=== PATIENT | male | born 1940 | race African-American/Black ===

== ENCOUNTER 2020-06-07 14:07 | Inpatient (IN) ==
[2020-06-07 15:43] LABS: Basophils % 0.3 % (0.0-0.8); Eosinophils # 0.1 10*3/uL (0.0-0.87); Eosinophils % 0.7 % (0.00-10.9); Hematocrit 33.9 VOL% (42.0-52.0); Immature Granulocytes % 0.4 %; Immature Granulocytes Absolute 0.05 #; Lymphocytes % 16.9 % (21.2-54.2); Mean Corpuscular HGB Conc 32.4 GM/DL (32-36); Mean Corpuscular Volume 92.1 FL (87-102); Mean Platelet Volume 10.2 FL (9.6-12.0); Monocytes % 10.1 % (1.7-12.7); Neutrophils % 71.6 % (38.7-73.9); Platelet Count 353 T/CUMM (130-400); Red Blood Count 3.68 MC/CUMM (3.8-5.5); Red Cell Distribution Width 12.8 % (9.3-17.3); White Blood Count 11.7 T/CUMM (4-12)
[2020-06-07 16:06] LABS: Albumin 2.9 G/DL (3.4-5.0); Bilirubin,Total 0.7 MG/DL (0.2-1.0); Calcium 8.8 MG/DL (8.5-10.1); Osmolality,Calculated 271.8 MOS/KG (273-304); Total Protein 8.1 G/DL (6.4-8.3)
[2020-06-07 16:08] LABS: Potassium 2.3 MMOL/L (3.5-5.1)
[2020-06-07] MEDS ORDERED: cefTRIAXone 1,000 MG in SODIUM CHLORIDE 0.9% 100 ML IV STA (16:24)
[2020-06-07] MEDS: POTASSIUM CHLORIDE RIDER 10 MEQ in PREMIX 1 EACH IV ONE ×2 (16:32→20:07)
[2020-06-07] MEDS ORDERED: DEXTROSE 50% 25 GM/50 ML VIAL IV PRN (16:50)
[2020-06-07] MEDS ORDERED: ONDANSETRON 4 MG/2 ML VIAL IV PRN (16:50)
[2020-06-07] MEDS ORDERED: GLUCAGON 1 MG VIAL IM PRN (16:50)
[2020-06-07] MEDS ORDERED: POTASSIUM CHLORIDE 20 MEQ TABLET PO ONE (17:47)
[2020-06-07] MEDS ORDERED: BENZONATATE 100 MG CAPSULE PO PRN (17:54)
[2020-06-07] MEDS: ALBUTEROL/IPRATROPIUM 3 ML NEB RESP TX SCH (19:07)
[2020-06-07] MEDS: ACETAMINOPHEN 325 MG TABLET PO PRN (20:09)
[2020-06-07] MEDS: AZITHROMYCIN INJ 500 MG in SODIUM CHLORIDE 0.9% 250 ML IV SCH (21:16)
[2020-06-07 23:41] LABS: Osmolality,Calculated 272.8 MOS/KG (273-304)
[2020-06-07 23:44] LABS: Potassium 2.2 MMOL/L (3.5-5.1)
[2020-06-08] MEDS: POTASSIUM CHLORIDE 20 MEQ TABLET PO PRN ×3 (00:07→05:28)
[2020-06-08] MEDS: ALBUTEROL/IPRATROPIUM 3 ML NEB RESP TX SCH ×4 (01:35→19:15)
[2020-06-08] MEDS: ACETAMINOPHEN 325 MG TABLET PO PRN ×3 (03:08→20:59)
[2020-06-08 06:15] LABS: Basophils % 0.3 % (0.0-0.8); Eosinophils # 0.1 10*3/uL (0.0-0.87); Eosinophils % 0.7 % (0.00-10.9); Hematocrit 29.6 VOL% (42.0-52.0); Hemoglobin 9.9 GM/DL (14.0-18.0); Immature Granulocytes % 0.5 %; Immature Granulocytes Absolute 0.04 #; Lymphocytes # 1.5 10*3/uL (1.4-4.0); Mean Corpuscular HGB Conc 33.4 GM/DL (32-36); Mean Corpuscular Volume 90.2 FL (87-102); Mean Platelet Volume 10.3 FL (9.6-12.0); Monocytes % 11.2 % (1.7-12.7); Neutrophils % 70.3 % (38.7-73.9); Platelet Count 330 T/CUMM (130-400); Red Blood Count 3.28 MC/CUMM (3.8-5.5); Red Cell Distribution Width 12.6 % (9.3-17.3); White Blood Count 8.9 T/CUMM (4-12)
[2020-06-08 06:33] LABS: Calcium 8.4 MG/DL (8.5-10.1); Osmolality,Calculated 280.3 MOS/KG (273-304)
[2020-06-08 06:36] LABS: Potassium 2.5 MMOL/L (3.5-5.1)
[2020-06-08] MEDS: POTASSIUM CHLORIDE RIDER 10 MEQ in PREMIX 1 EACH IV SCH ×2 (10:02→11:11)
[2020-06-08] MEDS: cefTRIAXone 1,000 MG in SYRINGE 1 EACH IV SCH (10:02)
[2020-06-08 14:37] LABS: Ferritin 262.7 ng/ml (26-388)
[2020-06-08] MEDS: SKIN HEALING OINT (AQUAPHOR) 50 GM TUBE TOP SCH (15:17)
[2020-06-08] MEDS ORDERED: POTASSIUM CHLORIDE RIDER 10 MEQ in PREMIX 1 EACH IV ONE (16:25)
[2020-06-08] MEDS: TIMOLOL 0.5% OPH SOLN 5 ML BOTTLE BOTH EYES SCH (20:59)
[2020-06-08] MEDS: BIMATOPROST 0.01% OPH SOLN 2.5 ML BOTTLE BOTH EYES SCH (20:59)
[2020-06-08] MEDS: AZITHROMYCIN INJ 500 MG in SODIUM CHLORIDE 0.9% 250 ML IV SCH (21:02)
[2020-06-09] MEDS: ALBUTEROL/IPRATROPIUM 3 ML NEB RESP TX SCH ×4 (00:32→19:32)
[2020-06-09 06:47] LABS: Basophils % 0.3 % (0.0-0.8); Eosinophils # 0.2 10*3/uL (0.0-0.87); Eosinophils % 1.8 % (0.00-10.9); Hematocrit 32.2 VOL% (42.0-52.0); Hemoglobin 10.4 GM/DL (14.0-18.0); Immature Granulocytes % 0.5 %; Immature Granulocytes Absolute 0.04 #; Lymphocytes # 1.9 10*3/uL (1.4-4.0); Lymphocytes % 21.6 % (21.2-54.2); Mean Corpuscular HGB Conc 32.3 GM/DL (32-36); Mean Corpuscular Volume 90.4 FL (87-102); Mean Platelet Volume 10.4 FL (9.6-12.0); Neutrophils % 66.8 % (38.7-73.9); Platelet Count 372 T/CUMM (130-400); Red Blood Count 3.56 MC/CUMM (3.8-5.5); Red Cell Distribution Width 12.9 % (9.3-17.3); White Blood Count 8.8 T/CUMM (4-12)
[2020-06-09 07:08] LABS: Calcium 8.7 MG/DL (8.5-10.1); Osmolality,Calculated 281.1 MOS/KG (273-304); Potassium 2.8 MMOL/L (3.5-5.1)
[2020-06-09] MEDS: TIMOLOL 0.5% OPH SOLN 5 ML BOTTLE BOTH EYES SCH ×2 (09:30→22:04)
[2020-06-09] MEDS: POTASSIUM CHLORIDE 20 MEQ TABLET PO SCH ×2 (09:32→22:03)
[2020-06-09] MEDS: ASPIRIN EC 81 MG TABLET PO SCH (09:32)
[2020-06-09] MEDS: cefTRIAXone 1,000 MG in SYRINGE 1 EACH IV SCH (09:32)
[2020-06-09] MEDS: SKIN HEALING OINT (AQUAPHOR) 50 GM TUBE TOP SCH (09:35)
[2020-06-09] MEDS: POTASSIUM CHLORIDE 20 MEQ TABLET PO PRN ×3 (11:31→16:15)
[2020-06-09] MEDS: traMADol 50 MG TABLET PO PRN (11:44)
[2020-06-09] MEDS: AZITHROMYCIN INJ 500 MG in SODIUM CHLORIDE 0.9% 250 ML IV SCH (22:03)
[2020-06-09] MEDS: BIMATOPROST 0.01% OPH SOLN 2.5 ML BOTTLE BOTH EYES SCH (22:04)
[2020-06-10] MEDS: ALBUTEROL/IPRATROPIUM 3 ML NEB RESP TX SCH ×3 (00:57→19:44)
[2020-06-10 05:05] LABS: Basophils % 0.5 % (0.0-0.8); Eosinophils # 0.3 10*3/uL (0.0-0.87); Eosinophils % 3.3 % (0.00-10.9); Hematocrit 28.6 VOL% (42.0-52.0); Hemoglobin 9.9 GM/DL (14.0-18.0); Immature Granulocytes % 0.3 %; Immature Granulocytes Absolute 0.02 #; Lymphocytes # 1.9 10*3/uL (1.4-4.0); Lymphocytes % 25.1 % (21.2-54.2); Mean Corpuscular HGB Conc 34.6 GM/DL (32-36); Monocytes % 11.4 % (1.7-12.7); Neutrophils % 59.4 % (38.7-73.9); Platelet Count 353 T/CUMM (130-400); Red Blood Count 3.25 MC/CUMM (3.8-5.5); Red Cell Distribution Width 12.8 % (9.3-17.3); White Blood Count 7.7 T/CUMM (4-12)
[2020-06-10 05:23] LABS: Calcium 8.2 MG/DL (8.5-10.1); Potassium 2.9 MMOL/L (3.5-5.1)
[2020-06-10 08:41] LABS: Bilirubin,Direct 0.16 MG/DL (0.0-0.20); Bilirubin,Indirect 0.2 MG/DL (0.0-1.0); Bilirubin,Total 0.4 MG/DL (0.2-1.0); Total Protein 6.7 G/DL (6.4-8.3)
[2020-06-10] MEDS: ASPIRIN EC 81 MG TABLET PO SCH (11:15)
[2020-06-10] MEDS: POTASSIUM CHLORIDE 20 MEQ TABLET PO SCH ×2 (11:15→20:31)
[2020-06-10] MEDS: cefTRIAXone 1,000 MG in SYRINGE 1 EACH IV SCH (11:16)
[2020-06-10] MEDS: TIMOLOL 0.5% OPH SOLN 5 ML BOTTLE BOTH EYES SCH ×2 (11:16→20:30)
[2020-06-10] MEDS: SKIN HEALING OINT (AQUAPHOR) 50 GM TUBE TOP SCH (11:17)
[2020-06-10] MEDS: ENOXAPARIN 40 MG/0.4 ML SYRINGE SUBCUT SCH (11:17)
[2020-06-10] MEDS ORDERED: VANCOMYCIN INJ 1,000 MG in SODIUM CHLORIDE 0.9% 250 ML IV SCH (13:00)
[2020-06-10] MEDS: VANCOMYCIN INJ 1,250 MG in SODIUM CHLORIDE 0.9% 250 ML IV SCH (15:35)
[2020-06-10] MEDS: POTASSIUM CHLORIDE 20 MEQ TABLET PO PRN ×2 (16:46→18:45)
[2020-06-10] MEDS: BIMATOPROST 0.01% OPH SOLN 2.5 ML BOTTLE BOTH EYES SCH (20:30)
[2020-06-10] MEDS ORDERED: SODIUM CHLORIDE 0.9% 250 ML IV ONE (20:36)
[2020-06-10] MEDS: AZITHROMYCIN INJ 500 MG in SODIUM CHLORIDE 0.9% 250 ML IV SCH (20:45)
[2020-06-10] MEDS: traMADol 50 MG TABLET PO PRN (21:38)
[2020-06-11] MEDS: ALBUTEROL/IPRATROPIUM 3 ML NEB RESP TX SCH ×4 (01:01→18:54)
[2020-06-11] MEDS: VANCOMYCIN INJ 1,250 MG in SODIUM CHLORIDE 0.9% 250 ML IV SCH ×2 (01:30→15:13)
[2020-06-11] MEDS: POTASSIUM CHLORIDE 20 MEQ TABLET PO PRN (06:18)
[2020-06-11 06:53] LABS: Basophils % 0.4 % (0.0-0.8); Eosinophils # 0.2 10*3/uL (0.0-0.87); Eosinophils % 2.8 % (0.00-10.9); Immature Granulocytes % 0.3 %; Immature Granulocytes Absolute 0.02 #; Lymphocytes # 1.6 10*3/uL (1.4-4.0); Mean Corpuscular HGB Conc 33.3 GM/DL (32-36); Mean Platelet Volume 10.4 FL (9.6-12.0); Monocytes % 10.8 % (1.7-12.7); Neutrophils % 62.7 % (38.7-73.9); Platelet Count 410 T/CUMM (130-400); Red Blood Count 3.37 MC/CUMM (3.8-5.5); Red Cell Distribution Width 12.8 % (9.3-17.3); White Blood Count 6.9 T/CUMM (4-12)
[2020-06-11 07:52] LABS: Calcium 8.2 MG/DL (8.5-10.1); Osmolality,Calculated 281.1 MOS/KG (273-304); Potassium 2.9 MMOL/L (3.5-5.1)
[2020-06-11] MEDS: POTASSIUM CHLORIDE 20 MEQ TABLET PO SCH ×2 (08:58→21:30)
[2020-06-11] MEDS: ASPIRIN EC 81 MG TABLET PO SCH (08:58)
[2020-06-11] MEDS: ENOXAPARIN 40 MG/0.4 ML SYRINGE SUBCUT SCH (08:59)
[2020-06-11] MEDS: cefTRIAXone 1,000 MG in SYRINGE 1 EACH IV SCH (08:59)
[2020-06-11] MEDS: TIMOLOL 0.5% OPH SOLN 5 ML BOTTLE BOTH EYES SCH ×2 (09:00→21:31)
[2020-06-11] MEDS: SKIN HEALING OINT (AQUAPHOR) 50 GM TUBE TOP SCH (09:01)
[2020-06-11] MEDS: AZITHROMYCIN INJ 500 MG in SODIUM CHLORIDE 0.9% 250 ML IV SCH (21:30)
[2020-06-11] MEDS: ACETAMINOPHEN 325 MG TABLET PO PRN (21:30)
[2020-06-11] MEDS: BIMATOPROST 0.01% OPH SOLN 2.5 ML BOTTLE BOTH EYES SCH (21:31)
[2020-06-11] MEDS: traMADol 50 MG TABLET PO PRN (21:31)
[2020-06-12] MEDS: ALBUTEROL/IPRATROPIUM 3 ML NEB RESP TX SCH ×4 (01:10→19:54)
[2020-06-12] MEDS: VANCOMYCIN INJ 1,250 MG in SODIUM CHLORIDE 0.9% 250 ML IV SCH ×2 (03:07→18:25)
[2020-06-12 09:17] LABS: Calcium 8.5 MG/DL (8.5-10.1); Osmolality,Calculated 280.3 MOS/KG (273-304); Potassium 3.3 MMOL/L (3.5-5.1)
[2020-06-12] MEDS: ASPIRIN EC 81 MG TABLET PO SCH (09:34)
[2020-06-12] MEDS: POTASSIUM CHLORIDE 20 MEQ TABLET PO SCH ×2 (09:34→21:16)
[2020-06-12] MEDS: ENOXAPARIN 40 MG/0.4 ML SYRINGE SUBCUT SCH (09:34)
[2020-06-12] MEDS: POTASSIUM CHLORIDE 20 MEQ TABLET PO PRN (09:35)
[2020-06-12] MEDS: TIMOLOL 0.5% OPH SOLN 5 ML BOTTLE BOTH EYES SCH ×2 (09:35→21:16)
[2020-06-12] MEDS: SKIN HEALING OINT (AQUAPHOR) 50 GM TUBE TOP SCH (09:36)
[2020-06-12] MEDS: CEFEPIME 1,000 MG in SODIUM CHLORIDE 0.9% 100 ML IV SCH ×4 (10:48→21:17)
[2020-06-12] MEDS: BIMATOPROST 0.01% OPH SOLN 2.5 ML BOTTLE BOTH EYES SCH (21:16)
[2020-06-13] MEDS: ALBUTEROL/IPRATROPIUM 3 ML NEB RESP TX SCH ×4 (00:58→19:10)
[2020-06-13] MEDS: CEFEPIME 1,000 MG in SODIUM CHLORIDE 0.9% 100 ML IV SCH ×4 (02:35→21:01)
[2020-06-13] MEDS: VANCOMYCIN INJ 1,250 MG in SODIUM CHLORIDE 0.9% 250 ML IV SCH (03:22)
[2020-06-13 06:30] LABS: Basophils # 0.1 10*3/uL (0.0-0.2); Basophils % 0.9 % (0.0-0.8); Eosinophils # 0.3 10*3/uL (0.0-0.87); Hematocrit 29.1 VOL% (42.0-52.0); Hemoglobin 9.5 GM/DL (14.0-18.0); Immature Granulocytes % 0.3 %; Immature Granulocytes Absolute 0.02 #; Lymphocytes # 1.6 10*3/uL (1.4-4.0); Lymphocytes % 23.7 % (21.2-54.2); Mean Corpuscular HGB Conc 32.6 GM/DL (32-36); Mean Corpuscular Volume 90.9 FL (87-102); Mean Platelet Volume 10.2 FL (9.6-12.0); Monocytes % 8.4 % (1.7-12.7); Neutrophils % 61.7 % (38.7-73.9); Platelet Count 465 T/CUMM (130-400); Red Cell Distribution Width 12.8 % (9.3-17.3); White Blood Count 6.7 T/CUMM (4-12)
[2020-06-13] MEDS: traMADol 50 MG TABLET PO PRN ×2 (06:43→21:08)
[2020-06-13 07:19] LABS: Calcium 8.2 MG/DL (8.5-10.1); Osmolality,Calculated 278.3 MOS/KG (273-304); Potassium 3.7 MMOL/L (3.5-5.1)
[2020-06-13] MEDS: POTASSIUM CHLORIDE 20 MEQ TABLET PO SCH ×2 (08:41→21:00)
[2020-06-13] MEDS: ASPIRIN EC 81 MG TABLET PO SCH (08:42)
[2020-06-13] MEDS: TIMOLOL 0.5% OPH SOLN 5 ML BOTTLE BOTH EYES SCH ×2 (08:44→21:01)
[2020-06-13] MEDS: SKIN HEALING OINT (AQUAPHOR) 50 GM TUBE TOP SCH (14:15)
[2020-06-13] MEDS: ENOXAPARIN 40 MG/0.4 ML SYRINGE SUBCUT SCH (14:16)
[2020-06-13] MEDS: BIMATOPROST 0.01% OPH SOLN 2.5 ML BOTTLE BOTH EYES SCH (21:01)
[2020-06-14] MEDS: ALBUTEROL/IPRATROPIUM 3 ML NEB RESP TX SCH ×4 (01:02→19:27)
[2020-06-14] MEDS: CEFEPIME 1,000 MG in SODIUM CHLORIDE 0.9% 100 ML IV SCH ×4 (03:57→21:49)
[2020-06-14 06:07] LABS: Basophils % 0.7 % (0.0-0.8); Eosinophils # 0.3 10*3/uL (0.0-0.87); Eosinophils % 5.1 % (0.00-10.9); Hematocrit 27.9 VOL% (42.0-52.0); Hemoglobin 9.6 GM/DL (14.0-18.0); Immature Granulocytes % 0.5 %; Immature Granulocytes Absolute 0.03 #; Lymphocytes # 1.5 10*3/uL (1.4-4.0); Lymphocytes % 24.2 % (21.2-54.2); Mean Corpuscular HGB Conc 34.4 GM/DL (32-36); Mean Platelet Volume 9.7 FL (9.6-12.0); Monocytes % 9.2 % (1.7-12.7); Neutrophils % 60.3 % (38.7-73.9); Platelet Count 434 T/CUMM (130-400); Red Blood Count 3.17 MC/CUMM (3.8-5.5); Red Cell Distribution Width 12.7 % (9.3-17.3); White Blood Count 6.1 T/CUMM (4-12)
[2020-06-14 06:24] LABS: Calcium 8.2 MG/DL (8.5-10.1); Osmolality,Calculated 278.3 MOS/KG (273-304); Potassium 3.9 MMOL/L (3.5-5.1)
[2020-06-14] MEDS: VANCOMYCIN INJ 1,250 MG in SODIUM CHLORIDE 0.9% 250 ML IV SCH ×2 (06:33→19:14)
[2020-06-14] MEDS: ASPIRIN EC 81 MG TABLET PO SCH (10:33)
[2020-06-14] MEDS: POTASSIUM CHLORIDE 20 MEQ TABLET PO SCH ×2 (10:34→21:49)
[2020-06-14] MEDS: ENOXAPARIN 40 MG/0.4 ML SYRINGE SUBCUT SCH (10:35)
[2020-06-14] MEDS: TIMOLOL 0.5% OPH SOLN 5 ML BOTTLE BOTH EYES SCH ×2 (10:42→21:50)
[2020-06-14] MEDS: SKIN HEALING OINT (AQUAPHOR) 50 GM TUBE TOP SCH (14:06)
[2020-06-14] MEDS: BIMATOPROST 0.01% OPH SOLN 2.5 ML BOTTLE BOTH EYES SCH (21:50)
[2020-06-14] MEDS: traMADol 50 MG TABLET PO PRN (22:13)
[2020-06-15] MEDS: ALBUTEROL/IPRATROPIUM 3 ML NEB RESP TX SCH ×4 (00:10→20:31)
[2020-06-15] MEDS: CEFEPIME 1,000 MG in SODIUM CHLORIDE 0.9% 100 ML IV SCH ×4 (03:14→20:58)
[2020-06-15 04:39] LABS: Basophils % 0.5 % (0.0-0.8); Eosinophils # 0.3 10*3/uL (0.0-0.87); Eosinophils % 4.3 % (0.00-10.9); Hematocrit 28.7 VOL% (42.0-52.0); Hemoglobin 9.5 GM/DL (14.0-18.0); Immature Granulocytes % 0.4 %; Immature Granulocytes Absolute 0.03 #; Lymphocytes # 1.8 10*3/uL (1.4-4.0); Lymphocytes % 24.3 % (21.2-54.2); Mean Corpuscular HGB Conc 33.1 GM/DL (32-36); Mean Corpuscular Volume 90.3 FL (87-102); Mean Platelet Volume 9.8 FL (9.6-12.0); Monocytes % 8.1 % (1.7-12.7); Neutrophils % 62.4 % (38.7-73.9); Platelet Count 514 T/CUMM (130-400); Red Blood Count 3.18 MC/CUMM (3.8-5.5); Red Cell Distribution Width 12.7 % (9.3-17.3); White Blood Count 7.4 T/CUMM (4-12)
[2020-06-15 05:05] LABS: Calcium 8.2 MG/DL (8.5-10.1); Osmolality,Calculated 280.1 MOS/KG (273-304)
[2020-06-15] MEDS: VANCOMYCIN INJ 1,250 MG in SODIUM CHLORIDE 0.9% 250 ML IV SCH (05:35)
[2020-06-15] MEDS: SKIN HEALING OINT (AQUAPHOR) 50 GM TUBE TOP SCH (09:05)
[2020-06-15] MEDS: TIMOLOL 0.5% OPH SOLN 5 ML BOTTLE BOTH EYES SCH ×2 (09:06→21:00)
[2020-06-15] MEDS: ENOXAPARIN 40 MG/0.4 ML SYRINGE SUBCUT SCH (09:06)
[2020-06-15] MEDS: ASPIRIN EC 81 MG TABLET PO SCH (09:07)
[2020-06-15] MEDS: POTASSIUM CHLORIDE 20 MEQ TABLET PO SCH ×2 (09:07→20:59)
[2020-06-15] MEDS: traMADol 50 MG TABLET PO PRN (20:59)
[2020-06-15] MEDS: BIMATOPROST 0.01% OPH SOLN 2.5 ML BOTTLE BOTH EYES SCH (21:00)
[2020-06-16] MEDS: ALBUTEROL/IPRATROPIUM 3 ML NEB RESP TX SCH ×2 (00:38→07:13)
[2020-06-16] MEDS: CEFEPIME 1,000 MG in SODIUM CHLORIDE 0.9% 100 ML IV SCH ×2 (03:16→09:00)
[2020-06-16 05:23] LABS: Basophils % 0.5 % (0.0-0.8); Eosinophils # 0.4 10*3/uL (0.0-0.87); Eosinophils % 4.3 % (0.00-10.9); Hematocrit 30.4 VOL% (42.0-52.0); Hemoglobin 9.9 GM/DL (14.0-18.0); Immature Granulocytes % 0.4 %; Immature Granulocytes Absolute 0.03 #; Lymphocytes # 1.8 10*3/uL (1.4-4.0); Lymphocytes % 20.7 % (21.2-54.2); Mean Corpuscular HGB Conc 32.6 GM/DL (32-36); Mean Corpuscular Volume 90.5 FL (87-102); Mean Platelet Volume 9.5 FL (9.6-12.0); Monocytes % 6.3 % (1.7-12.7); Neutrophils % 67.8 % (38.7-73.9); Platelet Count 519 T/CUMM (130-400); Red Blood Count 3.36 MC/CUMM (3.8-5.5); Red Cell Distribution Width 12.8 % (9.3-17.3); White Blood Count 8.6 T/CUMM (4-12)
[2020-06-16 05:51] LABS: Calcium 8.7 MG/DL (8.5-10.1); Osmolality,Calculated 275.5 MOS/KG (273-304); Potassium 4.4 MMOL/L (3.5-5.1)
[2020-06-16] MEDS: ASPIRIN EC 81 MG TABLET PO SCH (08:59)
[2020-06-16] MEDS: POTASSIUM CHLORIDE 20 MEQ TABLET PO SCH (09:00)
[2020-06-16] MEDS: SKIN HEALING OINT (AQUAPHOR) 50 GM TUBE TOP SCH (09:00)
[2020-06-16] MEDS: TIMOLOL 0.5% OPH SOLN 5 ML BOTTLE BOTH EYES SCH (09:55)
[2020-06-16] MEDS: ENOXAPARIN 40 MG/0.4 ML SYRINGE SUBCUT SCH (10:59)
[2020-06-16 12:37] VITALS: BP 120/60
[2020-06-16] MEDS ORDERED: FLUCONAZOLE 100 MG TABLET PO SCH (13:00)
[2020-06-17] MEDS ORDERED: DOXYCYCLINE HYCLATE 100 MG CAPSULE PO SCH (08:00)
== END 2020-06-16 13:59 | DRG 179 ==
LOC: EDBD → EDUNIT# → N.ED 14:07 → N.EDINP 14:07 → N.3E 18:11 → SUATTDRO 06-08 11:28
PROVIDERS: ADMIT Internal Medicine; ATTEND Emergency Medicine